=== PATIENT | female | born 1985 | race Two or more races ===

== ENCOUNTER 2020-03-01 22:20 | Emergency (ER) | payer OTHER ==
[~2020-03-01] VITALS: Ht 167.6 cm; Wt 72.6 kg
[2020-03-01 22:25] VITALS: BP_SYST 170; BP_SYST 183; BP_DIAS 90; BP_DIAS 97
--- NOTE | 2020-03-01 22:26 | Emergency Room Report ---
History of Present Illness General Chief Complaint: Flu Like Symptoms Source: Patient Present Illness HPI This a 34-year-old female who has a history hypertension. She presents with complaint of cough and shortness of breath. Onset for about 5 days now. She had routine outpatient testing for COVID 6 days ago. She was asymptomatic then. After which she started having a slight cough but now is getting worse. [id number] cough medicine not helping. No fever chills but no nausea no vomiting. Worse with exertion. Better with rest. Denies any fever or chills. 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 COVID-19 Screening: Positive COVID-19 COVID-19 Testing Source: outside source Patient History Past Medical History: see triage record, old chart reviewed, HTN Past Surgical History: none Pertinent Family History: none Social History: Denies: smoking Last Menstrual Period: unk Now: No Immunizations: other Reviewed Nursing Documentation: PMH: Agreed; PSxH: Agreed Nursing Documentation-PMH Hx Hypertension: Yes Review of Systems Eye: Denies: eye pain, blurred vision ENT: Denies: ear pain, nose congestion, throat swelling Respiratory: Reports: cough, shortness of breath Cardiovascular: Denies: chest pain, palpitations Gastrointestinal: Denies: abdominal pain, diarrhea, nausea, vomiting Musculoskeletal: Denies: back pain, joint pain Skin: Denies: rash Neurological: Denies: headache, numbness Endocrine: Denies: increased thirst, increased urine Hematologic/Lymphatic: Denies: easy bruising All Other Systems: negative except mentioned in HPI Physical Exam Vital Signs Date Time Temp Pulse Resp B/P (MAP) Pulse Ox O2 Delivery O2 Flow Rate FiO2 03/01/20 22:13 99.1 100 18 183/97 (125) 95 Room Air Vitals normal Sp02 EP Interpretation: reviewed, normal General Appearance: well appearing, no apparent distress, alert Head: normocephalic, atraumatic Eyes: bilateral eye PERRL, bilateral eye EOMI ENT: hearing grossly normal, normal pharynx Neck: full range of motion, supple, no meningismus Respiratory: chest non-tender, lungs clear, normal breath sounds Cardiovascular #1: regular rate, rhythm, no murmur Gastrointestinal: normal bowel sounds, non tender, no mass, no organomegaly, no bruit, non-distended Musculoskeletal: back normal, normal range of motion, gait/station normal Psychiatric: mood/affect normal Medical Decision Making Diagnostic Impression: Primary Impression: Acute bronchitis due to COVID-19 virus Additional Impression: Pneumonia due to COVID-19 virus ER Course Presents with symptom consistent with cold with bronchitis/pneumonia. She is hemic be stable. Oxygenation is normal. Not in respiratory distress. Will try outpatient treatment. Chest X-Ray Diagnostic Results Chest X-Ray Diagnostic Results : Chest X-Ray Ordered: Yes # of Views/Limited/Complete: 1 View Indication: Shortness of Breath EP Interpretation: Yes Interpretation: no effusion, no pneumothorax, other - Bilateral interstitial infiltrates Impression: Other - Bilateral interstitial infiltrates Electronically Signed by: Preston Brown MD Last Vital Signs Date Time Temp Pulse Resp B/P (MAP) Pulse Ox O2 Delivery O2 Flow Rate FiO2 03/01/20 22:13 99.1 100 18 183/97 (125) 95 Room Air Status: improved Disposition: HOME, SELF-CARE Condition: Stable Scripts Lorazepam* (ATIVAN*) 1 Mg Tablet 1 MG ORAL THREE TIMES A DAY, #20 TAB Prov: Preston Brown MD 03/01/20 Azithromycin* (ZITHROMAX*) 250 Mg Tablet 250 MG ORAL DAILY, #6 TAB 0 Refills Take two tables once daily for 1 day, then one tablet once daily for 4 days. Prov: Preston Brown MD 03/01/20 Codeine/Promethazine Hcl* (PROMETHAZINE-CODEINE SYRUP*) 118 Ml Syrup 5 ML ORAL Q6H PRN for For Cough, #240 ML 0 Refills Prov: Preston Brown MD 03/01/20 Prednisone* (PREDNISONE*) 20 Mg Tablet 40 MG ORAL DAILY, #14 TAB Prov: Preston Brown MD 03/01/20 Albuterol Sulfate (VENTOLIN HFA) 18 Gm Hfa.aer.ad 2 PUFFS INH EVERY 6 HOURS, #18 GM 0 Refills Prov: Preston Brown MD 03/01/20 Additional Instructions: Practice social distancing. Wear a mask. Follow-up with your doctor in 7 days. Return if worse. Preston Brown MD Mar 01, 2020:26
[2020-03-01] MEDS ORDERED: VENTOLIN HFA18 GM INH (23:14)
[2020-03-01] MEDS ORDERED: ZITHROMAX250 MG ORAL (23:14)
[2020-03-01] MEDS ORDERED: PROMETHAZINE-C118 M1 ORAL (23:14)
[2020-03-01] MEDS ORDERED: ATIVAN1 MG ORAL (23:14)
[2020-03-01] MEDS ORDERED: PREDNISONE20 MG ORAL (23:14)
[2020-03-01 23:45] VITALS: BP 155/98
--- NOTE | 2020-03-02 15:37 | Diagnostic Imaging Report ---
Indication: Shortness of breath Technique: One view of the chest Comparison: None Findings: There are bilateral peripheral infiltrates in a bronchovascular distribution. There are also nodularity appearing opacities in the periphery of both lungs. The pleural spaces are clear. The heart size is borderline enlarged. Impression: Bilateral opacities, likely multifocal bilateral pneumonia. Note nodular appearance of some of the opacities; follow-up to resolution recommended.
== END 2020-03-01 23:45 | disposition home or self-care (01) ==
LOC: EDBD 22:20 → EMR 22:53
DX: U07.1 COVID-19 (principal); J20.8 Acute bronchitis due to other specified organisms; J12.89 Other viral pneumonia; I10 Essential (primary) hypertension
CPT/HCPCS: 71045; J7512; Z7502; 99283